=== PATIENT | female | born 1995 | race Caucasian/White ===

== ENCOUNTER 2025-06-29 18:45 | Emergency (ER) | payer MEDICAID ==
[~2025-06-29] VITALS: Ht 157.5 cm; Wt 79.5 kg
[2025-06-29 19:10] VITALS: BP 126/75; PULSE 72; RESP 15; O2SAT 98
--- NOTE | 2025-06-29 19:19 | Physician Documentation ---
History of Present Illness ~ Chief Complaint: Back Pain Stated Complaint: "PROBLEMS WITH MY LT KIDNEY" Time Seen by MD: 19:19 OK to notify your PCP?: Yes Source: patient Mode of Arrival: POV Exam Limitations: no limitations HPI 29-year-old female with left-sided mid back pain with tenderness to palpation along muscles of spine, started 2 days ago. No known trauma. No CVA tenderness, or urinary symptoms. History of UTIs. No medications taken for pain prior to arrival. Also requesting nicotine patches to quit smoking Medication Reconciliation Allergies: Coded Allergies: No Known Allergies (Unverified , 06/29/25) Scheduled Lidocaine (Lidocaine), 1 PATCH TOP DAILY Nicotine 14 MG Patch* (Habitrol 14 MG Patch*), 1 PATCH TOP DAILY Review of Systems All Other Systems at this time: Reviewed and Negative Physical Exam Physical Exam Vital Signs: RN Vital Signs have been reviewed: Yes, Temperature: 96.8, Source: Temporal, Heart Rate: 72, Respiratory Rate: 15, BP: 126/75, Pulse Oximetry: 98, Weight: 79.500 Pulse Oximetry Reflects: adequate oxygenation Physical Exam General: Alert, no distress. HEENT: No injection, moist mucous membranes. Neck: Full range of motion. Respiratory: No respiratory distress, equal chest rise and fall. Chest: No accessory muscle use. Cardiovascular: Regular rate and rhythm. Gastrointestinal: Nondistended. Extremities: Normal range of motion, no deformity. Back: No CVA tenderness on either side. Tenderness to palpation along left latissimus dorsi muscles, no midline tenderness. Neurologic: Oriented x4. Psychiatric: Normal mood and affect. Skin: Normal color, warm and dry. Progress Results/Orders Results/Orders Orders - JESSICA DOMINGUEZ [employer] Nicotine 14mg Patch-24hr (Habitrol Patch (06/29/25 20:35) Completed Orders - JESSICA DOMINGUEZ [employer] DES[employer] ENG[employer] Acetaminophen 325mg Tablet (Tylenol Tabl (06/29/25 19:20) Ibuprofen Tablet (Motrin Tablet) (06/29/25 19:20) Lidocaine 5% Patch (Lidoderm 5% Patch) (06/29/25 19:20) Vital Signs 06/29/25 19:10 Temp 96.8 Pulse 72 Resp 15 B/P (MAP) 126/75 Pulse Ox 98 Laboratory Tests Test 06/29/25 19:30 Urine Specimen Description Cln catch midstream Urine Color Yellow Urine Clarity Clear Urine pH 6.0 Urine Specific [place] 1.025 Urine Protein Negative Urine Glucose (UA) Negative Urine Ketones Negative Urine Occult Blood Negative Urine Nitrite Negative Urine Bilirubin Negative Urine Urobilinogen 0.2 Urine Leukocyte Esterase Negative Urine Culture Indicated Not ind Volume Urine Centrifuged 10 ml Urine Comment Medical Decision Making Additional info obtained from: old records Findings 29 Year old female with mid back pain. Denies any saddle anesthesia or numbness or tingling down extremities. She has a history of UTIs although she is not having any urinary tract symptoms. Due to this we will do a urinalysis to rule out pyelonephritis. She does not have any CVA tenderness, she is tender along the muscles next to the spine on the left side. No midline tenderness. She states that she did trip and fall several days back and maybe she could be sore from this. I gave Tylenol and ibuprofen while here in the department as well as a lidocaine patch directly to the area and lidocaine patches sent to her pharmacy. She is driving herself today so I did not give any muscle relaxers. Her urinalysis negative for UTI. She is requesting some nicotine patches to help her quit smoking. She states on average she has <10 cigarettes per day so I will start her on the 14 mg patches. We discussed that I can only do a 30 day supply and that she will need to follow up with the primary care provider for further patches and weaning as this can be a process over the next couple of months. She agrees with the plan. Differential Dx:Considerations: Include: AAA, Aortic dissection, Appendicitis, Cholelithiasis, Fracture, Pyelonephritis, Urinary obstruction, Urolithiasis Differential Diagnosis Cauda equina, Departure Disposition: HOME / SELF CARE / HOMELESS Impression: Primary Impression: Back problem Condition: Stable Discharge Instructions: Acute Back Pain, Adult Additional Instructions: Please use the lidocaine patches for up to 12 hours to help with your back pain. For the nicotine patches, you will need to follow up with your primary care provider for further patches if you need a longer than a 30 day supply. Use Tylenol/ibuprofen for pain relief as well as a heating pad. Return back here for any new or worsening symptoms. Referrals: NO PRIMARY CARE PROVIDER (PCP) Prescriptions Lidocaine (Lidocaine) 5 % Adh..patch 1 PATCH TOP DAILY for 5 Days, #5 PATCH 0 Refills Prov: JESSICA DOMINGUEZ 06/29/25 Nicotine 14 MG Patch* (Habitrol 14 MG Patch*) 1 Each Patch.td24 1 PATCH TOP DAILY for smoking cessation for 30 Days, #30 PATCH Prov: JESSICA DOMINGUEZ 06/29/25 Education Educated: Patient Educated regarding: diagnosis, treatment, prognosis, need for follow up Additional Comment Medical Screen Exam This patient recieved a medical screening examination. After reviewing the individual's medical complaints with presenting symptoms and performing an appropriate physical examination, it was determined that no immediate life- threatening emergency medical condition is present. This individual is also not a women having contractions. Signature Scribe Signature: . Attestation: Scribed for Jessica Dominguez by Jessica Zhou NP . 06/29/25 20:34 Parts of this note were created using [employer] voice recognition software program. While efforts were made to correct any mistakes made by this voice recognition software program, nonsensical phrases may remain in this note. In addition, there may be errors and syntax, grammar, content and spelling. JESSICA DOMINGUEZ Jun 29, 2025 19:19
[2025-06-29 19:59] LABS: LEUKOCYTE ESTERASE ,URINE NEGATIVE (Neg); NITRITES, URINE NEGATIVE (Neg); OCCULT BLOOD,URINE NEGATIVE (Neg)
[2025-06-29 20:03] LABS: UA COLLECTION TYPE CLN CATCH MIDSTREAM
[2025-06-29] MEDS ORDERED: LIDO700A47 TOP (20:30)
[2025-06-29] MEDS ORDERED: NICO-631 TOP (20:30)
[2025-06-29] MEDS: ibuprofen tablet 400 MG TABLET PO ONE (20:32)
[2025-06-29] MEDS: nicotine 14mg patch - 24hr TD ONE (20:36)
[2025-06-29 20:37] VITALS: TEMP 96.8
== END 2025-06-29 20:41 | disposition home or self-care (01) ==
LOC: ER 18:46
DX: M54.50 Low back pain, unspecified (principal); Z79.899 Other long term (current) drug therapy
CPT/HCPCS: 81003; 99284